=== PATIENT | female | born 1960 | race Caucasian/White ===

== ENCOUNTER 2016-02-24 16:28 | Emergency (ER) | payer BC, OTHER ==
[2016-02-24] MEDS ORDERED: ASPIRIN 81 MG CHEW TAB ONE (16:47)
[2016-02-24] MEDS ORDERED: KCL CR 20 MEQ TAB PO ONE (18:01)
== END 2016-02-24 20:50 | disposition home or self-care (01) ==
LOC: ER 16:28
CPT/HCPCS: 36415; 71010; 80053; 82550; 83735; 84439; 84443; 84484; 85025; 85610; 85730; 93005